=== PATIENT | male | born 1970 | race Caucasian/White ===

== ENCOUNTER → 2021-09-05 | Outpatient (CLI) | payer MEDICARE ==
[~2021-09-05] MED LIST: ASPIR-LOW81 MG PO; CRESTOR40 MG PO; IMDUR ER TAB 6060 MG PO; LISINOPRIL5 MG PO; LOPRESSOR 25 MG25 MG PO; NORCO 7.5-3251 EACH PO; NORVASC 5 MG TAB5 MG PO; PLAVIX 75 MG TA75 MG PO; PROTONIX 20 MG20 MG PO; RANEXA500 MG PO; ZETIA 10 MG TAB10 MG PO
[2021-09-05 12:43] LABS: HEMOGLOBIN 15.6 gm/dl (14.0-17.5); RED BLOOD COUNT 4.93 M/UL (4.20-5.50)
[2021-09-05 12:59] LABS: BUN/CREATININE RATIO 8 (0-10)
== END ==
LOC: LAB 11:13
PROVIDERS: Family Medicine
DX: Z12.5 Encounter for screening for malignant neoplasm of prostate (principal); E53.8 Deficiency of other specified B group vitamins; I10 Essential (primary) hypertension; E78.2 Mixed hyperlipidemia; N40.0 Benign prostatic hyperplasia without lower urinary tract symptoms
CPT/HCPCS: 36415; 80053; 80061; 82607; 84153; 85027

== ENCOUNTER → 2021-10-16 | Outpatient (CLI) | payer MEDICARE | LOC: LAB 13:09 | DX: Z20.2 Contact with and (suspected) exposure to infections with a predominantly sexual mode of transmission (principal) | CPT/HCPCS: 87661 ==